=== PATIENT | female | born 1975 | race Caucasian/White ===

== ENCOUNTER → 2019-10-17 | Outpatient (CLI) | payer OTHER | LOC: RAD 10-12 10:52 → MRI 10-12 12:23 → EDSTATUS 10-12 20:09 → RAD 14:00 | DX: M47.817 Spondylosis without myelopathy or radiculopathy, lumbosacral region (principal); M48.07 Spinal stenosis, lumbosacral region ==

== ENCOUNTER → 2019-11-14 | Outpatient (CLI) | payer OTHER | LOC: MRI 12:39 | DX: M47.26 Other spondylosis with radiculopathy, lumbar region (principal); M47.818 Spondylosis without myelopathy or radiculopathy, sacral and sacrococcygeal region; M51.16 Intervertebral disc disorders with radiculopathy, lumbar region; M53.3 Sacrococcygeal disorders, not elsewhere classified; G96.8 Other specified disorders of central nervous system ==